=== PATIENT | male | born 1970 | race Caucasian/White ===

== ENCOUNTER 2023-12-22 18:05 | Emergency (ER) | payer OTHER, BC ==
[~2023-12-22] VITALS: Ht 175.3 cm; Wt 102.1 kg
[2023-12-22 18:14] VITALS: BP 163/103
[2023-12-22] MEDS ORDERED: Ketorolac Tromethamine 30mg Vial IM ONE (19:45)
[2023-12-22] MEDS ORDERED: IBUP800 PO (19:47)
== END 2023-12-22 19:54 | disposition home or self-care (01) ==
LOC: ER 18:05
DX: S46.912A Strain of unspecified muscle, fascia and tendon at shoulder and upper arm level, left arm, initial encounter (principal); W22.8XXA Striking against or struck by other objects, initial encounter
CPT/HCPCS: 73030; J1885